=== PATIENT | female | born 1990 | race Caucasian/White ===

== ENCOUNTER 2020-12-30 16:19 | Inpatient (IN) | payer OTHER ==
[~2020-12-30] VITALS: Ht 165.1 cm; Wt 65.5 kg
[2020-12-30] MEDS ORDERED: PREN1TAB60 PO (16:41)
[2020-12-30] MEDS ORDERED: METF500T17 PO (16:41)
[2020-12-30] MEDS ORDERED: PLEASE ENTER ALLERGIES MC SCH (17:00)
[2020-12-30] MEDS ORDERED: PLEASE ENTER HEIGHT AND WEIGHT MC SCH (17:00)
[2020-12-30] MEDS ORDERED: FENTANYL PF 100 MCG/2ML IVPush PRN (17:00)
[2020-12-30] MEDS ORDERED: TERBUTALINE 1 MG/ML, 1ML SQ PRN (17:00)
[2020-12-30] MEDS ORDERED: ONDANSETRON 2MG/ML, 2ML IVPush PRN (17:00)
[2020-12-30] MEDS ORDERED: OXYTOCIN 30U/ 0.9% NaCL 500ML 500 ML IV ONE (17:00)
[2020-12-30] MEDS ORDERED: TERBUTALINE 1 MG/ML, 1ML IVPush PRN (17:00)
[2020-12-30 17:13] LABS: BASOPHILS % (AUTO) 0 % (0-1); EOSINOPHILS % (AUTO) 1 % (1-7); LYMPHOCYTES % (AUTO) 24 % (22-44); MEAN CORPUSCULAR HEMOGLOBIN 32.4 pg (27.0-34.8); MEAN CORPUSCULAR HGB CONC 33.7 g/dL (32.4-35.8); MEAN PLATELET VOLUME 11.7 fL (7.4-10.4); MONOCYTES % (AUTO) 7 % (2-9); NEUTROPHILS % (AUTO) 67 % (42-75); PLATELET COUNT 129 x10^3/uL (130-400); RED BLOOD COUNT 4.58 x10^6/uL (3.82-5.3); RED CELL DISTRIBUTION WIDTH 13.8 % (9.6-15.2)
[2020-12-30] MEDS ORDERED: NEWBORN KIT ONE (18:38)
[2020-12-30] MEDS ORDERED: MISOPROSTOL 200 MCG TABLET ONE (18:38)
[2020-12-30] MEDS ORDERED: LIDOCAINE 1%, 20ML ONE (18:38)
[2020-12-30] MEDS: LACTATED RINGERS 1,000 ML IV SCH (18:50)
[2020-12-30] MEDS ORDERED: OXYTOCIN 30U/ 0.9% NaCL 500ML 500 ML IV PRN (20:00)
[2020-12-31] MEDS: LACTATED RINGERS 1,000 ML IV SCH (02:26)
[2020-12-31] MEDS: AMPICILLIN 2 GM in SODIUM CHLORIDE 0.9% 100 ML IV SCH ×2 (08:30→14:30)
[2020-12-31] MEDS ORDERED: FENTANYL/BUPIV./NS/PF 250 ML EPIDCONT ONE (08:47)
[2020-12-31] MEDS ORDERED: FENTANYL/BUPIV./NS/PF 250 ML EPIDCONT SCH (10:00)
[2020-12-31] MEDS ORDERED: EPHEDRINE 50 MG/ML, 1ML IVPush PRN (10:00)
[2020-12-31] MEDS ORDERED: NALOXONE 0.4 MG/ML, 1ML IVPush PRN (10:00)
[2020-12-31] MEDS ORDERED: LACTATED RINGERS 1,000 ML IV SCH (11:00)
[2020-12-31] MEDS ORDERED: LACTATED RINGERS 1,000 ML IVBOLUS PRN (11:00)
[2020-12-31] MEDS ORDERED: GLYCERIN ADULT SUPP PR PRN (17:30)
[2020-12-31] MEDS ORDERED: CARBOPROST TROMETHAMINE 250 MCG/ML, 1ML IM PRN (17:30)
[2020-12-31] MEDS ORDERED: SIMETHICONE 80 MG CHEW TAB PO PRN (17:30)
[2020-12-31] MEDS ORDERED: ONDANSETRON 2MG/ML, 2ML IV PRN (17:30)
[2020-12-31] MEDS ORDERED: BISACODYL 10 MG SUPP PR PRN (17:30)
[2020-12-31] MEDS ORDERED: ACETAMINOPHEN 325 MG TABLET PO PRN ×3 (17:30)
[2020-12-31] MEDS ORDERED: METHYLERGONOVINE 0.2 MG/ML IM PRN (17:30)
[2020-12-31] MEDS ORDERED: MEASLES,MUMPS&RUBELLA VACC/PF 0.5 ML SQ-VACC PRN (17:30)
[2020-12-31] MEDS ORDERED: MISOPROSTOL 200 MCG TABLET PR PRN (17:30)
[2020-12-31] MEDS ORDERED: DIPH,PERTUSS(ACELL),TET VAC/PF NC IM-VACC PRN (17:30)
[2020-12-31] MEDS ORDERED: METOCLOPRAMIDE 5 MG/ML, 2ML IV PRN (17:30)
[2020-12-31] MEDS ORDERED: MAGNESIUM HYDROXIDE 8%, 30ML UDC PO PRN (17:30)
[2020-12-31] MEDS ORDERED: DOCUSATE 100 MG CAPSULE PO PRN (17:30)
[2020-12-31] MEDS ORDERED: CALCIUM CARBONATE 500 MG TAB.CHEW PO PRN (17:30)
[2020-12-31] MEDS ORDERED: OXYcodone/APAP 5/325MG TABLET PO PRN ×2 (17:30)
[2020-12-31] MEDS: OXYTOCIN 30U/ 0.9% NaCL 500ML 500 ML IV SCH (17:55)
[2020-12-31] MEDS: IBUPROFEN 600 MG TABLET PO PRN (18:18)
[2020-12-31 21:00] VITALS: BP 96/60
[2021-01-01 01:00] VITALS: BP 101/62
[2021-01-01 01:52] LABS: BASOPHILS % (AUTO) 0 % (0-1); EOSINOPHILS % (AUTO) 1 % (1-7); LYMPHOCYTES % (AUTO) 12 % (22-44); MEAN CORPUSCULAR HEMOGLOBIN 32.2 pg (27.0-34.8); MEAN CORPUSCULAR HGB CONC 33.5 g/dL (32.4-35.8); MEAN PLATELET VOLUME 11.2 fL (7.4-10.4); MONOCYTES % (AUTO) 8 % (2-9); NEUTROPHILS % (AUTO) 79 % (42-75); PLATELET COUNT 95 x10^3/uL (130-400); RED BLOOD COUNT 4.47 x10^6/uL (3.82-5.3); RED CELL DISTRIBUTION WIDTH 13.9 % (9.6-15.2)
[2021-01-01] MEDS: OXYTOCIN 30U/ 0.9% NaCL 500ML 500 ML IV SCH ×2 (03:30→13:30)
[2021-01-01 05:00] VITALS: BP 104/71
[2021-01-01] MEDS: IBUPROFEN 600 MG TABLET PO PRN ×2 (05:21→11:20)
[2021-01-01 09:00] VITALS: BP 109/71
[2021-01-01] MEDS ORDERED: PRENATAL VIT/IRON/FA 1 EACH TABLET PO SCH (09:00)
[2021-01-01 11:45] VITALS: BP 109/67
[2021-01-01] MEDS ORDERED: ACET325C6 PO (15:10)
[2021-01-01] MEDS ORDERED: IBUP-1222 PO (15:11)
[2021-01-01 16:53] VITALS: BP 105/76
== END 2021-01-01 17:51 | disposition home or self-care (01) | DRG 807 ==
LOC: LDIP 16:19 → 2NW 12-31 20:19
PROVIDERS: ADMIT Obstetrics & Gynecology; ATTEND Obstetrics & Gynecology
PROC: 10E0XZZ Delivery of Products of Conception, External Approach (ICD-10-PCS; principal; 2020-12-31)
PROC: 0KQM0ZZ Repair Perineum Muscle, Open Approach (ICD-10-PCS; 2020-12-31)
PROC: 0UQMXZZ Repair Vulva, External Approach (ICD-10-PCS; 2020-12-31)
PROC: 3E0R3BZ Introduction of Anesthetic Agent into Spinal Canal, Percutaneous Approach (ICD-10-PCS; 2020-12-31)
PROC: 00HU33Z Insertion of Infusion Device into Spinal Canal, Percutaneous Approach (ICD-10-PCS; 2020-12-31)
PROC: 3E0234Z Introduction of Serum, Toxoid and Vaccine into Muscle, Percutaneous Approach (ICD-10-PCS; 2020-12-31)
DX: O42.92 Full-term premature rupture of membranes, unspecified as to length of time between rupture and onset of labor (principal); Z37.0 Single live birth; O24.420 Gestational diabetes mellitus in childbirth, diet controlled; O69.89X0 Labor and delivery complicated by other cord complications, not applicable or unspecified; Z20.822 Contact with and (suspected) exposure to COVID-19; O70.1 Second degree perineal laceration during delivery; Z3A.39 39 weeks gestation of pregnancy; Z23 Encounter for immunization
CPT/HCPCS: 36415; 82962; 85025; 86592; 86850; 86900; 87635; G0378; J0290; J2590; J7120